=== PATIENT | female | born 1955 | race Caucasian/White ===

== ENCOUNTER 2017-02-13 17:24 | Inpatient (IN) ==
--- NOTE | 2017-02-13 18:07 | Emergency Department Note ---
Disposition Clinical Impression: Syncope Qualifiers: Syncope type: unspecified Qualified Code(s): R55 - Syncope and collapse Disposition: Still a Patient Condition: Good Instructions: Syncope (ED) Referrals: Shara Richard CNP [Primary Care Provider] - Forms: ED Satisfaction Letter Time of Disposition: 18:54 General Adult HPI - General Chief complaint: ED Syncope Stated complaint: syncopal episode, headache Time Seen by Provider: 02/13/17 17:58 Source: patient Limitations: no limitations Nursing Notes Reviewed: Yes Vital Signs Reviewed: Yes - History of Present Illness HPI Narrative: Patient had syncopal episode today after having esophageal pain after drinking soda. She has had syncopal episodes after pain before. She states that she fell and struck her head on the hardwood. She is complaining of a headache at this time. She states she also urinated on herself. She is unaware how long she laid on the floor. She has no other complaints. Pain Scale: 7 - Related Data Home Medications Medication Instructions Recorded Confirmed Cholecalciferol (Vitamin D3) 3,000 unit PO DAILY 06/10/15 02/08/16 [Vitamin D3] Cyclobenzaprine [Flexeril] 5 mg PO HS 06/10/15 02/08/16 LORazepam [Ativan] 0.5 mg PO DAILY PRN 06/10/15 02/08/16 Lansoprazole [Prevacid] 30 mg PO QAM 06/10/15 02/08/16 Metoprolol XL (24 HR) Succ [Toprol 25 mg PO DAILY 06/10/15 02/08/16 XL] Rivaroxaban [Xarelto] 20 mg PO DAILY 06/10/15 02/08/16 Sertraline [Zoloft] 100 mg PO DAILY 06/10/15 02/08/16 Triamterene/HCTZ 37.5/25mg 1 tab PO DAILY 06/10/15 02/08/16 [Dyazide] Previous Rx's Medication Instructions Recorded Fluticasone Propionate Nasal 2 spray NS DAILY #1 bottle 12/18/16 [Flonase] GuaiFENesin ER [Mucinex] 600 mg PO BID PRN 3 Days 12/18/16 Azithromycin [Zithromax] 1 applic PO DAILY #6 tablet 12/29/16 Allergies Allergy/AdvReac Type Severity Reaction Status Date / Time tramadol AdvReac Dizziness Verified 06/09/15 19:45 All systems ED: reviewed and negative except as stated. Constitutional: Denies: fever, chills ENT ED: Denies: congestion Cardiovascular: Reports: syncope. Denies: chest pain, palpitations Respiratory: Denies: cough, dyspnea Gastrointestinal: Denies: abdominal pain, nausea, vomiting, diarrhea, hematemesis, melena, hematochezia Genitourinary: Denies: urgency, dysuria, frequency, hematuria Musculoskeletal: Reports: back pain (Lower). Denies: neck pain Neurological: Reports: headache. 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 Absent: scleral icterus - ENT ENT exam: normal exam, normal oropharynx, mucous membranes moist - Neck Neck exam: Present: normal inspection, full ROM, trachea midline. Absent: tenderness (No midline tenderness on palpation. She reports neck pain but points to the base of her skull with this.), meningismus, lymphadenopathy - Chest Chest inspection: Present: normal inspection, symmetric chest wall rise. Absent : tenderness - Respiratory Respiratory exam: Present: normal lung sounds bilaterally. Absent: respiratory distress - Cardiovascular Cardiovascular exam: Present: regular rate, normal rhythm, normal heart sounds - Abdominal Exam Abdominal exam: Present: soft, Non-Tender, normal bowel sounds. Absent: tenderness, distention, guarding, rebound, rigidity, organomegaly - Extremities Exam Extremities exam: Present: normal inspection, full ROM, normal capillary refill. Absent: tenderness, pedal edema - Back Exam Back exam: Present: normal inspection, full ROM. Absent: tenderness, CVA tenderness (R), CVA tenderness (L) - Neurological Exam Neurological exam: Present: alert, oriented X3 - Psychiatric Psychiatric exam: Present: normal affect, normal mood - Skin Skin exam: Present: warm, dry, intact, normal color. Absent: rash, cyanosis, diaphoresis Course Course Narrative: Well-appearing female patient in no distress resting in bed. She states that she has a headache. She states that she had a syncopal episode this afternoon. Sacral episode happened directly after she swallows some soda and had pain in her esophagus. She has had syncopal episodes previously after a painful experience. She has also had a syncopal episode after needlesticks and orthostasis. She complains of a headache at this time. She states she struck her head on the hardwood. She is unaware how long she laid on the floor. She did urinate on herself. She denies pain to her neck or back on palpation. She does report a lower back ache. Her lung sounds are clear heart tones are normal. Her abdomen is soft and nontender. She denies any nausea vomiting or diarrhea. She denies any chest pain or shortness of breath. She ate lunch approximately an hour before her syncopal episode. We will do a cardiac workup and scan patient's head while she is here. Daughter expresses concern of the patient "spacing out" recently. States she has been doing this over the past week. Patient is neurologically intact while she is here. Vital Signs Temperature 98.2 F 02/13/17 17:47 Pulse Rate 65 02/13/17 17:47 Respiratory Rate 18 02/13/17 17:47 Blood Pressure 139/73 02/13/17 17:47 O2 Sat by Pulse Oximetry 100 02/13/17 17:47 Temperature 98.2 F 02/13/17 17:47 Pulse Rate 65 02/13/17 17:47 Respiratory Rate 18 02/13/17 17:47 Blood Pressure 139/73 02/13/17 17:47 O2 Sat by Pulse Oximetry 100 02/13/17 17:47 Oxygen Delivery Oxygen Delivery Room Air Medical Decision Making - Lab Data Result diagrams: 02/13/17 18:23 02/13/17 18:23 Lab Results 02/13/17 02/13/17 02/13/17 Range/Units 18:23 18:23 18:23 WBC 5.9 (4.3-11.1) K/mcL RBC 3.61 L (3.82-4.97) M/mcL Hgb 7.9 L (11.5-15.4) g/dL Hct 27.1 L (35.3-44.9) % MCV 75.1 L (83.0-100.0) fL MCH 21.9 L (28.0-33.3) pg MCHC 29.2 L (31.6-35.5) g/dL RDW 16.9 H (11.5-14.5) % Plt Count 292 (140-400) K/mcL MPV 10.5 (9.4-12.4) fL Immature Gran % 0.5 (0-4) % Seg Neutrophils % 67.0 % Lymphocytes % 21.2 % Monocytes % 8.1 % Eosinophils % 2.5 % Basophils % 0.7 % Neutrophils # 4.0 (1.6-8.9) K/mcL Lymphocytes # 1.3 (0.6-4.6) K/mcL Monocytes # 0.5 (0.0-1.3) K/mcL Eosinophils # 0.2 (0.0-0.6) K/mcL Basophils # 0.0 (0.0-0.2) K/mcL Sodium 138 (136-145) mEq/L Potassium 3.8 (3.5-4.5) mEq/L Chloride 104 (98-109) mEq/L Carbon Dioxide 23 (19-29) mEq/L BUN 25 H (7-20) mg/dL Creatinine 1.08 (0.57-1.11) mg/dL Est GFR ( Amer) > 60 (> 60) Est GFR (Non-Af Amer) 51 L (> 60) BUN/Creatinine Ratio 23 (6-26) Glucose 110 H (70-99) mg/dL Calculated Osmolality 291 (280-300) Calcium 9.6 (8.6-10.8) mg/dL Creatine Kinase 322 H (29-168) Units/L Troponin I 0.00 (0-0.03) ng/mL - EKG Data EKG #1 EKG results narrative: EKG normal sinus rhythm at 57. Left anterior fascicular block with left axis deviation. Normal ST segments. EKG unchanged from prior January 2016. S.B.A.R. - S.B.A.R. Background: Presenting Complaint (Syncope after pain in her esophagus from drinking soda.), Relevant PMH, Meds, & Allergies (Has had several episodes of syncope before from pain and needles as well as orthostasis.) Assessment: Vital Signs (Stable), Course and respsone to treatment (CT head lab workup) Recommendation: Recommendation based on pending studies, treatments, or consults (Barring normal workup likely discharge patient home.) [email or web address] Report Given to: Abhay Sprague Repor Time: 18:50 Attestation Statement - Attestation Attestation: I examined this patient and my medical decision-making was reviewed with the CHARGE RN/PA/Advanced Practice Nurse/Resident Physician. I agree with the documented findings, disposition and treatment plan as described except to the extent set forth below. Patient to ED after a syncopal episode. Patient lost consciousness after she was drinking pop and got a spasm in her esophagus that was painful. Family concerned because they state she has been "spacing out" lately. Patient neurologically intact on exam. Plan. Cardiac workup with head CT. Will be signed out to welder 2nd shift.
[2017-02-13 18:33] LABS: Basophils % 0.7 %; Eosinophils # 0.2 K/mcL (0.0-0.6); Eosinophils % 2.5 %; Hematocrit 27.1 % (35.3-44.9); Immature Granulocytes % 0.5 % (0-4); Lymphocytes # 1.3 K/mcL (0.6-4.6); Lymphocytes % 21.2 %; Mean Corpuscular HGB Conc 29.2 g/dL (31.6-35.5); Mean Corpuscular Hemoglobin 21.9 pg (28.0-33.3); Mean Corpuscular Volume 75.1 fL (83.0-100.0); Mean Platelet Volume 10.5 fL (9.4-12.4); Monocytes # 0.5 K/mcL (0.0-1.3); Monocytes % 8.1 %; Platelet Count 292 K/mcL (140-400); Red Blood Count 3.61 M/mcL (3.82-4.97); Red Cell Distribution Width 16.9 % (11.5-14.5)
[2017-02-13 18:43] LABS: BUN/Creatinine Ratio 23 (6-26); Blood Urea Nitrogen 25 mg/dL (7-20); Calcium 9.6 mg/dL (8.6-10.8); Carbon Dioxide 23 mEq/L (19-29); Chloride 104 mEq/L (98-109); Creatine Kinase 322 Units/L (29-168); Glucose 110 mg/dL (70-99); Osmolality,Calculated 291 (280-300); Potassium 3.8 mEq/L (3.5-4.5); Sodium 138 mEq/L (136-145); eGFR For African Americans > 60 (> 60); eGFR For Non-African Americans 51 (> 60)
[2017-02-13 18:44] LABS: Hemoglobin 7.9 g/dL (11.5-15.4)
[2017-02-13] MEDS ORDERED: 0.9 % Sodium Chloride 1,000 ML IVC ONE (18:51)
[2017-02-13] MEDS ORDERED: Pantoprazole 80 MG in 0.9 % Sodium Chloride 50 ML IVPB ONE (19:44)
--- NOTE | 2017-02-13 19:50 | Emergency Department Note ---
Disposition Clinical Impression: GI bleed Syncope Qualifiers: Syncope type: unspecified Qualified Code(s): R55 - Syncope and collapse Disposition: Admitted As Inpatient Condition: Good Instructions: Syncope (ED) Referrals: Jose Manuel,Shara Restrepo CNP [Primary Care Provider] - Forms: ED Satisfaction Letter Time of Disposition: 19:50 General Adult HPI - General Chief complaint: ED Syncope Stated complaint: syncopal episode, headache Time Seen by Provider: 02/13/17 17:58 Source: patient Limitations: no limitations Nursing Notes Reviewed: Yes Vital Signs Reviewed: Yes - History of Present Illness Pain Scale: 6 - Related Data Home Medications Medication Instructions Recorded Confirmed Cholecalciferol (Vitamin D3) 3,000 unit PO DAILY 06/10/15 02/08/16 [Vitamin D3] LORazepam [Ativan] 0.5 mg PO DAILY PRN 06/10/15 02/08/16 Lansoprazole [Prevacid] 30 mg PO QAM 06/10/15 02/08/16 Metoprolol XL (24 HR) Succ [Toprol 25 mg PO DAILY 06/10/15 02/08/16 XL] Rivaroxaban [Xarelto] 20 mg PO DAILY 06/10/15 02/08/16 Sertraline [Zoloft] 100 mg PO DAILY 06/10/15 02/08/16 Triamterene/HCTZ 37.5/25mg 1 tab PO DAILY 06/10/15 02/08/16 [Dyazide] Albuterol Sulfate [Albuterol 2 puff IH Q4-6H PRN 02/13/17 02/13/17 Inhaler] Atorvastatin Calcium [Lipitor] 20 mg PO HS 02/13/17 02/13/17 Allergies Allergy/AdvReac Type Severity Reaction Status Date / Time tramadol AdvReac Dizziness Verified 06/09/15 19:45 Constitutional: Denies: fever, chills ENT ED: Denies: congestion Cardiovascular: Reports: syncope. Denies: chest pain, palpitations Respiratory: Denies: cough, dyspnea Gastrointestinal: Denies: abdominal pain, nausea, vomiting, diarrhea, hematemesis, melena, hematochezia Genitourinary: Denies: urgency, dysuria, frequency, hematuria Musculoskeletal: Reports: back pain (Lower). Denies: neck pain Neurological: Reports: headache. 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 Sebastian. In brief the patient is a pleasant 61-year-old female that is on xarelto for a history of atrial fibrillation. She had an episode of syncope today that sounded more vasovagal and that she was drinking a soda, felt a bubble in her throat and passed out. She has had similar episodes in the past. Given that she is anticoagulated and fell and struck her head she had a CT of her head which was negative. Chest x- ray was also negative. Blood work showed a new anemia at 7.9 and chemistry showing elevated BUNs concerning for possible upper GI bleed. Heme positive stool. Patient was given IV Protonix bolus and 1 unit of packed red blood cells as ordered. She is hemodynamically stable for the floor at this time. Patient accepted by hospitalist Dr. Bradley. Time: 19:50 Vital Signs Temperature 98.2 F 02/13/17 17:47 Pulse Rate 65 02/13/17 17:47 Respiratory Rate 18 02/13/17 17:47 Blood Pressure 139/73 02/13/17 17:47 O2 Sat by Pulse Oximetry 100 02/13/17 17:47 Temperature 98.2 F 02/13/17 17:47 Pulse Rate 60 02/13/17 19:10 Respiratory Rate 18 02/13/17 19:10 Blood Pressure 123/48 02/13/17 19:10 O2 Sat by Pulse Oximetry 98 02/13/17 19:10 Oxygen Delivery Oxygen Delivery Room Air Medical Decision Making - Lab Data Result diagrams: 02/13/17 18:23 02/13/17 18:23 Lab Results 02/13/17 02/13/17 02/13/17 Range/Units 18:23 18:23 18:23 WBC 5.9 (4.3-11.1) K/mcL RBC 3.61 L (3.82-4.97) M/mcL Hgb 7.9 L (11.5-15.4) g/dL Hct 27.1 L (35.3-44.9) % MCV 75.1 L (83.0-100.0) fL MCH 21.9 L (28.0-33.3) pg MCHC 29.2 L (31.6-35.5) g/dL RDW 16.9 H (11.5-14.5) % Plt Count 292 (140-400) K/mcL MPV 10.5 (9.4-12.4) fL Immature Gran % 0.5 (0-4) % Seg Neutrophils % 67.0 % Lymphocytes % 21.2 % Monocytes % 8.1 % Eosinophils % 2.5 % Basophils % 0.7 % Neutrophils # 4.0 (1.6-8.9) K/mcL Lymphocytes # 1.3 (0.6-4.6) K/mcL Monocytes # 0.5 (0.0-1.3) K/mcL Eosinophils # 0.2 (0.0-0.6) K/mcL Basophils # 0.0 (0.0-0.2) K/mcL Sodium 138 (136-145) mEq/L Potassium 3.8 (3.5-4.5) mEq/L Chloride 104 (98-109) mEq/L Carbon Dioxide 23 (19-29) mEq/L BUN 25 H (7-20) mg/dL Creatinine 1.08 (0.57-1.11) mg/dL Est GFR ( Amer) > 60 (> 60) Est GFR (Non-Af Amer) 51 L (> 60) BUN/Creatinine Ratio 23 (6-26) Glucose 110 H (70-99) mg/dL Calculated Osmolality 291 (280-300) Calcium 9.6 (8.6-10.8) mg/dL Creatine Kinase 322 H (29-168) Units/L Troponin I 0.00 (0-0.03) ng/mL Stool Occult Blood (Negative) 02/13/17 Range/Units 19:25 WBC (4.3-11.1) K/mcL RBC (3.82-4.97) M/mcL Hgb (11.5-15.4) g/dL Hct (35.3-44.9) % MCV (83.0-100.0) fL MCH (28.0-33.3) pg MCHC (31.6-35.5) g/dL RDW (11.5-14.5) % Plt Count (140-400) K/mcL MPV (9.4-12.4) fL Immature Gran % (0-4) % Seg Neutrophils % % Lymphocytes % % Monocytes % % Eosinophils % % Basophils % % Neutrophils # (1.6-8.9) K/mcL Lymphocytes # (0.6-4.6) K/mcL Monocytes # (0.0-1.3) K/mcL Eosinophils # (0.0-0.6) K/mcL Basophils # (0.0-0.2) K/mcL Sodium (136-145) mEq/L Potassium (3.5-4.5) mEq/L Chloride (98-109) mEq/L Carbon Dioxide (19-29) mEq/L BUN (7-20) mg/dL Creatinine (0.57-1.11) mg/dL Est GFR ( Amer) (> 60) Est GFR (Non-Af Amer) (> 60) BUN/Creatinine Ratio (6-26) Glucose (70-99) mg/dL Calculated Osmolality (280-300) Calcium (8.6-10.8) mg/dL Creatine Kinase (29-168) Units/L Troponin I (0-0.03) ng/mL Stool Occult Blood Positive A (Negative)
--- NOTE | 2017-02-13 21:40 | Internal Med History&Physical ---
Date of Encounter: 02/13/17 Time of Encounter: 21:40 Assessment and Plan (1) Acute blood loss anemia Current visit: Yes Status: Acute Likely secondary to GI bleed. Monitor H&H. Transfuse PRBC to keep Hemoglobin > 8 (2) GI bleed Current visit: Yes Status: Acute FOB positive. No overt melena or hematochezia. Suspect subacute bleed. GI consult for possible endoscopy. Emperically treat with pantoprazole IV. Hold xarelto Qualifiers: GI bleed type/associated pathology: unspecified gastrointestinal hemorrhage type Qualified Code(s): K92.2 - Gastrointestinal hemorrhage, unspecified (3) Syncope Current visit: Yes Status: Acute Possible reflex syncope versus orthostatic versus cardiogenic. Pt had urinary incontinence - will obtain EEG to exclude seizure activity. Will check orthostatic vitals, echocardiogram, urinalysis. She also has left anterior fascicular block on the EKG - consider cardiology consult, if other w/u is negative. Qualifiers: Syncope type: unspecified Qualified Code(s): R55 - Syncope and collapse (4) Chronic anticoagulation Current visit: Yes Status: Chronic patient is on Xarelto for anticoagulation for A fib. Hold anticoagulation at this time. (5) History of atrial fibrillation Current visit: Yes Status: Acute Pt is in sinus rhythm now. Monitor (6) ANDREE (obstructive sleep apnea) Current visit: Yes Status: Chronic Pt was not able to use the CPAP recently, due to cough. She reports feeling tired in the mornind and falls asleep during the day. May need titration of CPAP as out patient. She does not want CPAP tonight (7) DVT prophylaxis Current visit: Yes Status: Acute Pt on Xarelto. Can start SCDs, if the pt is staying beyond tomorrow. Internal Medicine - H&P: HPI Chief complaint: syncope Admitted From: Emergency Dept Plans for Post Hospital Care: Home History of present illness: Ms. Hernandez is a 61 year old female with history of atrial fibrillation - on xarelto and metoprolol, hypertension, ANDREE on CPAP at home, h/o syncopal episodes, s/p cholecystectomy. She had colonoscopy doen about 7-10 years ago and was normal at that time. Her brother had colon cancer at the age of 74. She reports history of multiple episodes of passing out they are usually associated with pain, needles. She reports feeling dizzy on standing up, but usually holds on to something and doesn t pass out. Today, she drank soda and felt like bubble stuck in her midchest, which caused her pain moderate in intensity, sharp, non-radiating and went away. She stood up afterwards and apparently passed out. She found herself on the floor, and wondered how she ended up there. She denies palpitations, shortness of breath, headache, dizziness preceding the syncope. Her grandson was nearby but apparently did not notice her fall. No other withness. No tongue bite; she had urinaly incontinence, but no bowel incontinence. She denies chest pain, shortness of breath, cough, expectation, fever, chills, abdominal pain, nausea, vomiting, dysuria, hematuria, melena, hematochezia, vaginal bleeding. She was evaluated in the emergency department. CT of the head and CXR were negative. Blood work showed anemia with hemoglobin of 7.9 and chemistry showing elevated BUN of 25. Heme positive stool. Patient was given IV Protonix bolus and admitted to the hospitalist service for further workup and management. Past Med Surg Social Fam HX - Past Medical History Medical history: atrial fibrillation, hypertension, syncope, other Psychiatric history: anxiety, depression - Past Surgical History Surgical History: , cholecystectomy, other (Tonsillectomy) - Social History Smoking Status: Never smoker Smokeless Tobacco Status: No Alcohol use: none Drug use: none - Family History Mother Living Status: Father Living Status: Hx Family Cardiac Disorders: Yes Internal Medicine - H&P: Meds Cholecalciferol (Vitamin D3) [Vitamin D3] 2,000 unit PO DAILY 06/10/15 [History] LORazepam [Ativan] 0.5 mg PO DAILY PRN 06/10/15 [History] Lansoprazole [Prevacid] 30 mg PO QAM 06/10/15 [History] Metoprolol XL (24 HR) Succ [Toprol XL] 25 mg PO DAILY 06/10/15 [History] Rivaroxaban [Xarelto] 20 mg PO HS 06/10/15 [History] Sertraline [Zoloft] 100 mg PO HS 06/10/15 [History] Triamterene/HCTZ 37.5/25mg [Dyazide] 1 tab PO DAILY 06/10/15 [History] Albuterol Sulfate [Albuterol Inhaler] 2 puff IH Q4-6H PRN 02/13/17 [History] Atorvastatin Calcium [Lipitor] 20 mg PO HS 02/13/17 [History] Allergies tramadol Adverse Reaction (Verified 06/09/15 19:45) Dizziness All Systems PM: A 10-system review of systems was performed and is negative for pertinent findings except as documented above in the HPI. - Constitutional Vitals: Temp Pulse Resp BP Pulse Ox 98.2 F 60 18 123/48 98 02/13/17 17:47 02/13/17 19:10 02/13/17 20:22 02/13/17 20:22 02/13/17 19:10 Exam: General: Not in acute distress at the time of my evaluation HEENT: Oral mucosa is moist. conjunctival palor present. No scleral icterus Neck: No obvious neck swellings Lungs: Clear to auscultation Cardiac: Regular rate and rhythm. Systolic murmur present Abdomen: Soft, non tender. Bowel sounds present Genitourinary: No lee catheter Neurological: Alert and oriented. No gross localizing deficits Psych: Not aggressive or agitated Extremities: B/L pitting leg edema present Skin: No generalized rash Internal Med - H&P Results - Labs CBC & Chem 7: 02/13/17 23:45 02/13/17 18:23 - EKG Data -: EKG Interpreted by Myself EKG shows normal: sinus rhythm - EKG Data EKG comments: left anterior fascicular block 02/13/17 23:53 - Impressions ITS Impressions Head CT 02/13/17 18:15 IMPRESSION: 1. No acute intracranial abnormality. 2. Right sphenoid sinusitis. D/ / Harjinder Calderon MD / Harjinder Calderon MD Interpreting Provider: Harjinder Calderon MD Chest X-Ray 02/13/17 19:08 IMPRESSION: No evidence of acute cardiopulmonary disease. D/ / García Keane MD / García Keane MD Interpreting Provider: García Keane MD
[2017-02-13] MEDS ORDERED: Naloxone 0.4 MG/ML INJ IVP PRN (21:41)
[2017-02-13] MEDS ORDERED: *HR* LORazepam 0.5 MG TABLET PO PRN (22:42)
[2017-02-13] MEDS ORDERED: Acetaminophen 325 MG TABLET PO ONE (23:00)
[2017-02-13] MEDS: Pantoprazole 40 MG VIAL IVP SCH (23:07)
[2017-02-13 23:55] LABS: Hematocrit 24.6 % (35.3-44.9); Hemoglobin 7.3 g/dL (11.5-15.4)
[2017-02-14 00:02] LABS: INR 1.4; Prothrombin Time 14.7 Seconds (9.4-12.1)
[2017-02-14 00:05] LABS: Activated Partial Thrombo Time 31.3 Seconds (26.0-36.0)
[2017-02-14 02:43] LABS: Bilirubin,Urine Negative (Negative); Blood,Urine Negative (Negative); Clarity,Urine Clear (Clear); Color,Urine Yellow (Yellow); Glucose,Urine (UA) Normal (Normal); Ketones,Urine Negative (Negative); Leukocyte Esterase,Urine Negative (Negative); Nitrite,Urine Negative (Negative); Protein,Urine Negative (Neg-Trace); Urobilinogen,Urine Normal (Normal)
[2017-02-14] MEDS: Pantoprazole 40 MG VIAL IVP SCH ×2 (06:47→17:15)
[2017-02-14 08:24] LABS: Hematocrit 27.6 % (35.3-44.9); Hemoglobin 8.2 g/dL (11.5-15.4); Mean Corpuscular HGB Conc 29.7 g/dL (31.6-35.5); Mean Corpuscular Hemoglobin 22.5 pg (28.0-33.3); Mean Corpuscular Volume 75.6 fL (83.0-100.0); Mean Platelet Volume 10.4 fL (9.4-12.4); Platelet Count 268 K/mcL (140-400); Red Blood Count 3.65 M/mcL (3.82-4.97); Red Cell Distribution Width 17.1 % (11.5-14.5)
[2017-02-14] MEDS ORDERED: Perflutren Lipid Microsphere 1.3 ML in 0.9 % Sodium Chloride 8.7 ML IVP ONE (08:58)
[2017-02-14] MEDS ORDERED: Perflutren Lipid Microsphere 2 ML VIAL ONE (09:02)
[2017-02-14 09:11] LABS: Alanine Aminotransferase 21 Units/L (0-55); Albumin 3.3 g/dL (3.5-5.0); Alkaline Phosphatase 41 Units/L (38-126); Aspartate Amino Transferase 23 Units/L (5-34); BUN/Creatinine Ratio 17 (6-26); Bilirubin,Total 0.7 mg/dL (0.2-1.2); Blood Urea Nitrogen 17 mg/dL (7-20); Calcium 9.6 mg/dL (8.6-10.8); Carbon Dioxide 23 mEq/L (19-29); Chloride 107 mEq/L (98-109); Globulin 3.2 g/dL (2.4-3.5); Glucose 103 mg/dL (70-99); Osmolality,Calculated 290 (280-300); Potassium 3.8 mEq/L (3.5-4.5); Sodium 139 mEq/L (136-145); Total Protein 6.5 g/dL (6.0-8.3); eGFR For African Americans > 60 (> 60); eGFR For Non-African Americans 55 (> 60)
--- NOTE | 2017-02-14 10:02 | ECHO - Doppler Report ---
Echo with Imaging Enhancement Agent Name: Laurie Hernandez Date of Study: 02/14/2017 Date: 1955 Ht: 65.0 in Medical Record#: [id number] Age: 61 Wt: 238.0 lb Gender: Female BSA: 2.13 Order #: [id number] Location: [facility] Room #: 3B Reading Physician: Malaika Harrison DO Outside Installation Machinist: Kenya Bennett Ordering Physician: Angie Comer MD Primary Physician: Shara Richard CNP Indications: Syncope Impressions: LVEF 55%. Normal left ventricular size and systolic function. There is evidence of moderate diastolic dysfunction of the left ventricle. Normal right ventricular size and function. Mild aortic regurgitation. No pulmonary hypertension. Left Ventricular Wall Motion: Rest Echo Findings All wall segments showed normal motion. Findings: Study Quality * Technically sub-optimal due to body habitus. ECG Findings * Sinus rhythm with BBB. Aorta * Normally sized aortic root. Left Atrium * Moderate to severely enlarged. Aortic Valve * Mild aortic regurgitation. * Aortic valve not well visualized. * No aortic stenosis. Tricuspid Valve * Trace tricuspid regurgitation. * Normal tricuspid valve structure. * Estimated RA pressure is 3 mmHg. * Estimated RVSP is 20 mmHg. * No pulmonary hypertension. Pulmonic Valve * Pulmonic valve is not well visualized. * No pulmonic stenosis. * No pulmonic regurgitation. Pulmonary Artery * Pulmonary artery not well visualized. Left Ventricle * LVEF 55%. * Normal LV chamber size, wall thickness and function. * Moderate left ventricular diastolic dysfunction. * Definity echo contrast was used. Right Ventricle * Normal right ventricular structure and function. Right Atrium * Normal right atrial size. Mitral Valve * No mitral stenosis. * Trace mitral regurgitation. * Normal mitral structure. Pericardium * There is no pericardial effusion present. Interatrial Septum * Interatrial septum not well evaluated. IVC * The IVC is not dilated. History Hypertension Hypercholesteremia Family History of CAD 01/19/2014 a Previous Echo was performed. Contrast: Definity 1.3 ml in 8.7 ml of saline 2 ml. Measurements: BP: 123/ 71 2D Normal Values RVIDd: 3.40 cm <2.7 cm IVSd: 1.20 cm 0.6 - 1.0 cm LVIDd: 5.00 cm 3.7 - 5.6 cm LVPWd: 1.20 cm 0.6 - 1.1 cm LVIDs: 3.50 cm 1.5 - 3.6 cm AO: 2.50 cm < 4.0 cm LA: 4.80 cm 2.0 - 4.0cm %FS: 30.00 cm >25 % LVOT Diam: 2.00 cm LA volume: 89 Mitral Valve Peak E:.98 m/sec Peak A:.90 m/sec E/A Ratio:1.1 Peak E' Lat Dane:9.07 cm/s Peak E' Med Dane:5.35 cm/s E/E' Lat Ratio:10.8 E/E' Med Ratio:18.4 LVOT Peak Dane:1.36 m/sec Mean Dane:.93 m/sec Peak Grad:7.00 mmHg Mean Grad:4.00 mmHg Aortic Valve Peak Dane:2.54 m/sec Mean Dane:1.69 m/sec Peak Grad:26.00 mmHg Mean Grad:13.00 mmHg Valve Area:1.84 cm2 Pressure 1/2 time:826.00 msec AI pressure Half-time: 826.00 msec Tricuspid Valve TV Regurg Peak Grad: 17.00mmHg TV Regurg Peak Dane: 2.09m/sec Updated by Malaika Harrison on 02/14/2017 9:56:52 AM electronically signed on 02/14/2017 9:57:57 AM with status of Final Wall Motion [place]: 1=Normal, 2=Hypokinesis, 3=Akinesis, 4=Dyskinesis, 5=Aneurysmal, 6=Hyperkinetic, X=Not Visualized (Blank)=Missing
--- NOTE | 2017-02-14 12:03 | Gastroenterology Consult Note ---
<Homero Stinson - Last Filed: 02/14/17 12:00> Date of Encounter: 02/14/17 Time of Encounter: 10:05 - Assessment and plan (1) Anemia Status: Acute Assessment and plan: Continue to monitor CBC and transfuse PRBC as needed. Check iron and ferritin level from ED sample prior to PRBC transfusion. Will plan for EGD and colonoscopy on Friday with prep on Friday. If still admitted, clear liquid diet Friday, no red or purple. NPO at midnight Friday night. If unable tolerate NuLytely please use MiraLAX prep. If not clear by 6 AM Friday, give 2 tap water enemas. If patient is discharged over the weekend, we will complete this as an outpatient. Qualifiers: Anemia type: unspecified type Qualified Code(s): D64.9 - Anemia, unspecified (2) Fecal occult blood test positive Status: Acute (3) Syncope Status: Acute Assessment and plan: Management per primary team. Qualifiers: Syncope type: unspecified Qualified Code(s): R55 - Syncope and collapse - Time Spent With Patient Total time spent is greater than 50% in coordination of care (as documented) at patient's floor/unit and/or counseling patient: GI History of Present Illness - Data of Consult Patient: new to practice Consult date: 02/14/17 Requesting Physician: Sabrina Timmons - Consult Narrative Reason for consult: anemia History of present illness: Ms. Hernandez is a 61 year old female with PMHx of Afib on Xarelto, HTN, ANDREE, and syncopal episodes. Her brother was diagnosed with colon cancer at age 74. Pt presented to the ED with syncopal episode today after having esophageal pain after drinking soda. She states that she fell and struck her head on the hardwood. CT of the head and CXR were negative. We were consulted to evaluate her anemia. Hgb 7.9 on admission and has received 1 unit PRBC. Hgb today 8.2 Procedures: None NSAIDs: None Anticoagulation: None Past Med Surg Social Fam HX - Past Medical History Medical history: atrial fibrillation, hypertension, syncope, other Psychiatric history: anxiety, depression - Past Surgical History Surgical History: , cholecystectomy, other (Tonsillectomy) - Social History Smoking Status: Never smoker Smokeless Tobacco Status: No Alcohol use: none Drug use: none - Family History Mother Living Status: Father Adopted: [place]: ANGIE Family Member Ethnicity: Non- Living Status: Age at : 69 Cause of : HEART PROBLEMS Hx Family Cardiac Disorders: Yes Hx Family Respiratory Disorders: No Hx Family Cancer: No Hx Family GI Disorders: No Hx Family Genitourinary Disorders: No Hx Family Endocrine Disorder: No Hx Family Musculoskeletal Disorders: No Hx Family Neuromuscular Disorders: No Hx Family Neurologic Disorders: No Hx Family HEENT Disorders: No Hx Family Autoimmune Disorders: No Hx Family Reproductive Disorders: No Hx Family Psychosocial Disorders: No Hx Family Medical Disorders: No - Gastrointestinal Gastrointestinal: Present: as per HPI - Constitutional Constitutional: as per HPI - EENT Eyes: as per HPI Ears: Present: as per HPI Nose, mouth and throat: Present: as per HPI - Cardiovascular Cardiovascular ROS: Present: as per HPI - Respiratory Respiratory IM: Present: as per HPI - Genitourinary Genitourinary: Absent: change in color, Urinary frequency - Neurological ROS Neurological GI: Present: as per HPI - Hematologic/Lymphatic Hematologic/Lymphatic pediatric: Present: as per HPI - Musculoskeletal Musculoskeletal ROS GI: Present: as per HPI - Integumentary Integumentary GI: Present: as per HPI - Psychiatric ROS Psychiatric GI: Present: as per HPI - Endocrine Endocrine IM: Present: as per HPI - Constitutional Vitals: Temp Pulse Resp BP Pulse Ox 97.4 F L 60 16 116/71 98 02/14/17 11:45 02/14/17 11:45 02/14/17 11:45 02/14/17 11:45 02/14/17 11:45 General appearance: Present: cooperative, A&O X 3, no acute distress, answers questions appropriately - Head Head exam: Present: atraumatic, normocephalic - Eye Eye exam: Present: normal appearance, sclera anicteric - ENT ENT exam: Present: mucous membranes moist - Neck Neck exam general surgery: Present: normal inspection, trachea midline - Respiratory Respiratory exam: Present: CTAB. Absent: rales, rhonchi, wheezes - Cardiovascular Cardiovascular exam: Present: RRR, +S1, +S2 - GI/Abdominal GI/Abdominal exam: Present: soft, no peritoneal signs. Absent: distended, firm , guarding, tenderness - Rectal Rectal exam: Present: deferred - Extremities Exam Extremities exam: Present: warm - Neurological Exam Neurological exam: Present: no focal deficits - Psychiatric Psychiatric exam: Present: normal affect, normal mood - Skin Skin exam: Present: dry, intact, normal color, warm Results - Labs CBC & Chem 7: 02/14/17 08:04 02/14/17 08:04 Labs: Last Result Calcium 9.6 mg/dL (8.6-10.8) 02/14/17 08:04 Troponin I 0.00 ng/mL (0-0.03) 02/14/17 08:04 Stool Occult Blood Positive (Negative) A 02/13/17 19:25 Entire Visit Hgb 8.2 g/dL (11.5-15.4) L 02/14/17 08:04 Hct 27.6 % (35.3-44.9) L 02/14/17 08:04 PT 14.7 Seconds (9.4-12.1) H 02/13/17 23:45 Total Bilirubin 0.7 mg/dL (0.2-1.2) 02/14/17 08:04 AST 23 Units/L (5-34) 02/14/17 08:04 ALT 21 Units/L (0-55) 02/14/17 08:04 - ABG ABG results: PT/INR, D-dimer PT 14.7 Seconds (9.4-12.1) H 02/13/17 23:45 Consult Discharge Plan - Plan Instructions: Iron Supplements (By mouth), Hydrochlorothiazide (By mouth), Pantoprazole (By mouth), Colorectal Cancer (GEN), Heart Healthy Diet (DC), Keyes Esophagus (GEN), DASH Eating Plan (GEN), Low Sodium Diet (DC) Additional Instructions: please follow an strict low salt and low cholesterol diet. Referrals: Silverio Suggs MD [Partnered Physician] - (The office will call you with an appointment date and time. If you do not hear from the office within 3 days please call the office.) Sheryl Infante MD [Partnered Physician] - 02/26/17 1:00 pm (within 1 week) Shara Richard CNP [Primary Care Provider] - 02/20/17 9:00 am (Your appt on 02/18 has been cancelled.) Cheri Olivas MD [Partnered Physician] - (We have requested a hospital follow with Dr Olivas's office. The office will call you at home with an appointment date and time. ) Prescriptions: Ferrous Sulfate 325 mg PO DAILY@0800 #30 tablet Hydrochlorothiazide [Microzide] 25 mg PO DAILY #60 capsule Pantoprazole Sodium 40 mg PO BID #60 tablet. <Cheri Olivas - Last Filed: 02/19/17 09:50> Date of Encounter: 02/14/17 - Time Spent With Patient Total time spent is greater than 50% in coordination of care (as documented) at patient's floor/unit and/or counseling patient: GI History of Present Illness - Data of Consult Requesting Physician: Sabrina Timmons - Consult Narrative History of present illness: Ms. Hernandez is a 61 year old female - Constitutional Vitals: Temp Pulse Resp BP Pulse Ox 97.8 F 62 16 147/71 98 02/17/17 15:52 02/17/17 15:52 02/17/17 15:52 02/17/17 15:52 02/17/17 15:52 Results - Labs CBC & Chem 7: 02/17/17 05:58 02/17/17 05:58 Labs: Last Result Calcium 9.7 mg/dL (8.6-10.8) 02/17/17 05:58 Iron 18 mcg/dL (50-170) L 02/14/17 08:04 % Saturation 4 % (15-50) L 02/14/17 08:04 Transferrin 310 mg/dL (180-382) 02/14/17 08:04 Ferritin 9 ng/ml (5-204) 02/14/17 08:04 Troponin I 0.00 ng/mL (0-0.03) 02/14/17 08:04 Stool Occult Blood Positive (Negative) A 02/13/17 19:25 Entire Visit Hgb 10.0 g/dL (11.5-15.4) L D 02/17/17 05:58 Hct 33.2 % (35.3-44.9) L 02/17/17 05:58 PT 14.7 Seconds (9.4-12.1) H 02/13/17 23:45 Ferritin 9 ng/ml (5-204) 02/14/17 08:04 Total Bilirubin 0.7 mg/dL (0.2-1.2) 02/14/17 08:04 AST 23 Units/L (5-34) 02/14/17 08:04 ALT 21 Units/L (0-55) 02/14/17 08:04 - ABG ABG results: PT/INR, D-dimer PT 14.7 Seconds (9.4-12.1) H 02/13/17 23:45 - Attending Attestation I examined this patient and my medical decision-making was reviewed with the PHOTOENGRAVING MACHINE OPERATOR/TENDER/PA/Advanced Practice Nurse/Resident Physician. I agree with the documented findings, disposition and treatment plan as described except to the extent set forth below.
[2017-02-14 12:40] LABS: % Iron Saturation 4 % (15-50); Iron 18 mcg/dL (50-170); Transferrin 310 mg/dL (180-382)
[2017-02-14 13:02] LABS: Ferritin 9 ng/ml (5-204)
--- NOTE | 2017-02-14 15:26 | EEG/EMG/Oth Biometrics Report ---
EEG Procedure Report Date of procedure: 02/14/17 EEG Procedure: Routine EEG Procedure Note: This is a report of a 21 channel bipolar and referential montage EEG. A posterior dominant rhythm of 10 Hz moderate voltage alpha frequencies identified symmetrically in the posterior head regions. This rhythm attenuates symmetrically with eye opening. Intermixed beta frequencies are identified in the frontal leads bilaterally. Drowsiness and stage II sleep were identified as reference by dropout of the posterior dominant rhythm and the emergence of vertex activity K complexes and sleep spindles. Hyperventilation is not performed on the recording. Photic stimulation is performed and does not produce a driving response. The EKG rhythm strip reveals sinus bradycardia at 48 beats per minute. Impressions: This EEG recording is within normal limits. There is no evidence of epileptiform activity identified during the study. Comment: Sinus bradycardia at 48 bpm's identified. A normal EEG does not preclude a diagnosis of seizure or epilepsy. If the clinical suspicion for seizure activity is high, serial EEGs or perhaps a prolonged recording may increase the yield. Please correlate clinically. The documentation in the history of HPI and plan were at least partially created by [employer] recognition technology by Dr. Guerrero. Errors in grammar, wording or other phrases may exist. If errors are found after the documentation signed, they will be addressed individually in the addendum section of this document when appropriate.
[2017-02-14] MEDS: Acetaminophen 325 MG TABLET PO PRN (17:15)
--- NOTE | 2017-02-14 17:39 | Electrocardiograph Report ---
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
--- NOTE | 2017-02-14 19:08 | Internal Med Progress Note ---
Date of Encounter: 02/14/17 Time of Encounter: 12:30 - Assessment and plan (1) Syncope Current Visit: Yes Status: Acute Assessment and plan: secondary to blood loss anemia. plan as in anemia echocardiogram shows LVEF 55%, moderate diastolic dysfunction. eeg was unremarkable. head ct was negative for any acute process Qualifiers: Syncope type: unspecified Qualified Code(s): R55 - Syncope and collapse (2) Anemia Current Visit: Yes Status: Acute Assessment and plan: hgb at 7.3 transfused 1 unit PRBC. holding xarelto. no external bleeding. fecal occult blood test was positive. close monitoring. GI consulted. ferritin at 9. start ferrous sulfate. Qualifiers: Anemia type: iron deficiency Iron deficiency anemia type: chronic blood loss Qualified Code(s): D50.0 - Iron deficiency anemia secondary to blood loss (chronic) (3) Fecal occult blood test positive Current Visit: Yes Status: Acute Assessment and plan: likely from gi bleed. (4) GI bleed Current Visit: Yes Status: Acute Assessment and plan: plan as above Qualifiers: GI bleed type/associated pathology: unspecified gastrointestinal hemorrhage type Qualified Code(s): K92.2 - Gastrointestinal hemorrhage, unspecified (5) History of atrial fibrillation Current Visit: Yes Status: Acute Assessment and plan: hold Xarelto. continue metoprolo. HR is adequate (6) HTN (hypertension) Current Visit: No Status: Chronic Assessment and plan: low normal BP. hold home meds. Qualifiers: Hypertension type: essential hypertension Qualified Code(s): I10 - Essential (primary) hypertension - Subjective Interval history: patient denies any bleeding. no abdominal pain. she takes xarelto for the past 2 years. no bleeding in the past - Constitutional Vitals: Temp Pulse Resp BP Pulse Ox 97.7 F 65 16 121/76 99 02/14/17 15:21 02/14/17 15:21 02/14/17 15:21 02/14/17 15:21 02/14/17 15:21 - Neck Neck exam general surgery: Present: supple, trachea midline. Absent: lymphadenopathy - Respiratory Respiratory exam: Present: CTAB - Cardiovascular Cardiovascular exam: Present: RRR - GI/Abdominal GI/Abdominal exam: Present: normal bowel sounds, soft. Absent: distended, tenderness - Extremities Exam Extremities exam: Absent: pedal edema - Neurological Exam Neurological exam: Present: alert, oriented X3, no focal deficits, strengths equal and symetr throughout. Absent: facial droop, speech deficit Internal Medicine: Result - Labs CBC & Chem 7: 02/14/17 08:04 02/14/17 08:04 Labs: Short CBC 02/14/17 Range/Units 08:04 WBC 4.2 L (4.3-11.1) K/mcL Hgb 8.2 L (11.5-15.4) g/dL Hct 27.6 L (35.3-44.9) % Plt Count 268 (140-400) K/mcL BMP 02/14/17 08:04 Sodium 139 Potassium 3.8 Chloride 107 Carbon Dioxide 23 BUN 17 Creatinine 1.01 Glucose 103 H Calcium 9.6 Cardiac Enzymes 02/14/17 Range/Units 08:04 Troponin I 0.00 (0-0.03) ng/mL Liver Function 02/14/17 Range/Units 08:04 Total Bilirubin 0.7 (0.2-1.2) mg/dL AST 23 (5-34) Units/L ALT 21 (0-55) Units/L Alkaline Phosphatase 41 (38-126) Units/L Albumin 3.3 L (3.5-5.0) g/dL Urine 02/14/17 Range/Units 02:30 Urine Color Yellow (Yellow) Urine Clarity Clear (Clear) Urine pH 6.0 (5.0-8.0) pH Units Ur Specific [place] 1.010 (1.010-1.025) Urine Protein Negative (Neg-Trace) mg/dL Urine Glucose (UA) Normal (Normal) mg/dL - ABG Interpretation ABG results: PT/INR, D-dimer PT 14.7 Seconds (9.4-12.1) H 02/13/17 23:45 Consult Discharge Plan - Plan Referrals: Jose Manuel,Shara Restrepo CNP [Primary Care Provider] - 02/20/17 9:00 am (Your appt on 02/18 has been cancelled.)
[2017-02-14 19:48] LABS: Hematocrit 28.3 % (35.3-44.9); Hemoglobin 8.1 g/dL (11.5-15.4)
[2017-02-15 03:37] LABS: Basophils # 0.1 K/mcL (0.0-0.2); Basophils % 1.2 %; Eosinophils # 0.2 K/mcL (0.0-0.6); Eosinophils % 3.2 %; Hematocrit 27.7 % (35.3-44.9); Hemoglobin 8.2 g/dL (11.5-15.4); Immature Granulocytes % 0.4 % (0-4); Lymphocytes # 1.7 K/mcL (0.6-4.6); Lymphocytes % 33.7 %; Mean Corpuscular HGB Conc 29.6 g/dL (31.6-35.5); Mean Corpuscular Hemoglobin 22.3 pg (28.0-33.3); Mean Corpuscular Volume 75.3 fL (83.0-100.0); Monocytes # 0.5 K/mcL (0.0-1.3); Monocytes % 9.4 %; Neutrophils # 2.6 K/mcL (1.6-8.9); Platelet Count 262 K/mcL (140-400); Red Blood Count 3.68 M/mcL (3.82-4.97); Segmented Neutrophils % 52.1 %
[2017-02-15 03:54] LABS: Calcium 9.4 mg/dL (8.6-10.8); Magnesium 1.6 mg/dL (1.6-2.6); Potassium 3.5 mEq/L (3.5-4.5)
[2017-02-15] MEDS: Pantoprazole 40 MG VIAL IVP SCH ×2 (05:28→18:44)
[2017-02-15] MEDS ORDERED: Regadenoson 0.4 MG/5 ML SYRINGE IVP ONE (10:06)
--- NOTE | 2017-02-15 13:24 | Internal Med Progress Note ---
Date of Encounter: 02/15/17 Time of Encounter: 13:22 - Assessment and plan (1) Syncope Current Visit: Yes Status: Acute Assessment and plan: secondary to chronic blood loss anemia r/o ACS. echocardiogram shows LVEF 55%, moderate diastolic dysfunction. eeg was unremarkable. head ct was negative for any acute process stress test ordered. no telemetry events. Qualifiers: Syncope type: unspecified Qualified Code(s): R55 - Syncope and collapse (2) Anemia Current Visit: Yes Status: Acute Assessment and plan: symptomatic iron deficiency anemia. ferritin at 9. 02/13: hgb at 7.3 transfused 1 unit PRBC. holding xarelto. 02/15: hgb at 8.1. no external bleeding. GI consulted. plan for colonoscopy on Friday. continue ferrous sulfate. Qualifiers: Anemia type: iron deficiency Iron deficiency anemia type: chronic blood loss Qualified Code(s): D50.0 - Iron deficiency anemia secondary to blood loss (chronic) (3) Fecal occult blood test positive Current Visit: Yes Status: Acute Assessment and plan: likely from gi bleed. (4) GI bleed Current Visit: Yes Status: Acute Assessment and plan: plan as above Qualifiers: GI bleed type/associated pathology: unspecified gastrointestinal hemorrhage type Qualified Code(s): K92.2 - Gastrointestinal hemorrhage, unspecified (5) History of atrial fibrillation Current Visit: Yes Status: Acute Assessment and plan: hold Xarelto. continue metoprolo. HR is adequate (6) HTN (hypertension) Current Visit: No Status: Chronic Assessment and plan: low normal BP. hold home meds. Qualifiers: Hypertension type: essential hypertension Qualified Code(s): I10 - Essential (primary) hypertension - Subjective Interval history: patient has no chest pain. no shortness of breath. no bleeding. - Constitutional Vitals: Temp Pulse Resp BP Pulse Ox 98.0 F 70 16 119/49 96 02/15/17 07:14 02/15/17 07:14 02/15/17 07:14 02/15/17 07:14 02/15/17 07:14 General appearance: Present: cooperative, A&O X 3, pleasant, no acute distress, answers questions appropriately - Respiratory Respiratory exam: Present: CTAB - Cardiovascular Cardiovascular exam: Present: RRR - GI/Abdominal GI/Abdominal exam: Present: normal bowel sounds, soft. Absent: distended, tenderness - Extremities Exam Extremities exam: Absent: pedal edema - Back Exam Back exam: Absent: CVA tenderness (L), CVA tenderness (R) - Neurological Exam Neurological exam: Present: alert, oriented X3, no focal deficits, strengths equal and symetr throughout. Absent: facial droop, speech deficit - Skin Skin exam: Absent: rash Internal Medicine: Result - Labs CBC & Chem 7: 02/15/17 03:19 02/15/17 03:19 Labs: Short CBC 02/14/17 02/15/17 Range/Units 19:17 03:19 WBC 5.0 (4.3-11.1) K/mcL Hgb 8.1 L 8.2 L (11.5-15.4) g/dL Hct 28.3 L 27.7 L (35.3-44.9) % Plt Count 262 (140-400) K/mcL Neutrophils # 2.6 (1.6-8.9) K/mcL BMP 02/15/17 03:19 Sodium 137 Potassium 3.5 Chloride 106 Carbon Dioxide 22 BUN 19 Creatinine 1.14 H Glucose 101 H Calcium 9.4 - ABG Interpretation ABG results: PT/INR, D-dimer PT 14.7 Seconds (9.4-12.1) H 02/13/17 23:45 Consult Discharge Plan - Plan Referrals: Shara Richard CNP [Primary Care Provider] - 02/20/17 9:00 am (Your appt on 02/18 has been cancelled.)
[2017-02-15] MEDS: Acetaminophen 325 MG TABLET PO PRN (14:58)
[2017-02-16 05:22] LABS: Basophils % 0.7 %; Eosinophils # 0.1 K/mcL (0.0-0.6); Eosinophils % 2.2 %; Hematocrit 27.5 % (35.3-44.9); Immature Granulocytes % 0.2 % (0-4); Lymphocytes # 1.6 K/mcL (0.6-4.6); Mean Corpuscular HGB Conc 29.1 g/dL (31.6-35.5); Mean Corpuscular Hemoglobin 22.2 pg (28.0-33.3); Mean Corpuscular Volume 76.2 fL (83.0-100.0); Monocytes # 0.6 K/mcL (0.0-1.3); Monocytes % 11.4 %; Platelet Count 254 K/mcL (140-400); Red Blood Count 3.61 M/mcL (3.82-4.97); Red Cell Distribution Width 17.1 % (11.5-14.5); Segmented Neutrophils % 56.5 %
[2017-02-16 05:34] LABS: Calcium 9.1 mg/dL (8.6-10.8); Neutrophils # 3.1 K/mcL (1.6-8.9); Potassium 3.6 mEq/L (3.5-4.5)
[2017-02-16] MEDS: Pantoprazole 40 MG VIAL IVP SCH ×2 (05:46→16:51)
[2017-02-16 05:50] LABS: Anisocytosis 1+ (Not Present); Hypochromasia Present (Not Present); Platelet Estimate Normal (Normal); Schistocytes 1+ (Not Present)
[2017-02-16 05:51] LABS: Ovalocytes 1+ (Not Present); Poikilocytosis 1+ (Not Present); Polychromasia 1+ (Not Present)
--- NOTE | 2017-02-16 12:02 | Nuclear Medicine Stress Report ---
Regadenoson Nuclear 2 day Name: Laurie Hernandez Date of Study: 02/15/2017 Date: 1955 Ht: 64.0 in Medical Record#: [id number] Age: 61 Wt: 240.0 lb Gender: Female Order #: [id number] Location: [facility] Room: [facility] Supervising Provider: Tomas Bradlye CNP Reading Physician: Silverio Suggs MD, [facility] Ordering Physician: Sabrina Timmons MD Primary Care Physician: Shara Richard CNP Stress Technologist: José Miguel Gunter RRT, CCT Heel Seam Rubber: Narciso Sarmiento Indications: Syncope Impression: Perfusion imaging was positive for ischemia - small, mildly reversible mid anterior defect. Pharmacologic ECG was non diagnostic for ischemia. Patient had no chest pain with stress. No arrhythmias noted with stress. Gated EF = 67%. There is no evidence of TID. No high risk findings on stress test Ordering physician and cardiology consultation team notified. History: Hypertension Hypercholesteremia Stress Test Summary: Stress Test Type: Pharmacologic Regadenoson 0.4mg/5ml given IV Baseline Information: Initial Heart Rate: 49 Blood Pressure: 130/76 Stress Information: Stress Time: 4 min 00 sec Test Terminated Due to (primary): Completed Protocol Maximum Blood Pressure: 104/76 Maximum Heart Rate: 79 Percent Maximum Heart Rate Achieved: 50 Double Product: 8216 METS Reached: 1 Symptoms: Shortness of breath, [place] Nuclear Summary: SPECT myocardial perfusion imaging using Tc99m Sestamibi given intravenously was performed at rest and following cardiac stress testing. The resting images were obtained following initial dose of 35.7 mCi. Following stress an additional dose of 35.2 mCi was given at peak exercise or 30 seconds post regadenoson infusion. Medication Given: Time Medication Dose Units Route Findings: Stress Note * Sinus bradycardia. * No baseline arrhythmias were noted. * Pharmacologic stress ECG is non diagnostic for ischemia due to failure to reach target heartrate. * No chest pain or arrhythmias during stress. Hemodynamic responses * The patient demonstrated a hypotensive blood pressure response. Study Quality * Study quality is average. Gated EF % * Gated EF = 67%. Left Ventricle * The left ventricle is not dilated. NORMALS * Normal wall motion. * Normal Segmental Perfusion in rest. * All other segmental perfusion normal in stress. Anterior Perfusion Stress * The mid anterior segment shows a mild reduction in perfusion. Updated by Silverio Suggs MD, FACC on 02/16/2017 11:53:04 AM electronically signed on 02/16/2017 11:58:46 AM with status of Final
[2017-02-16] MEDS: Furosemide 40 MG TABLET PO SCH ×2 (12:12→16:51)
[2017-02-16] MEDS ORDERED: 0.9 % Sodium Chloride 250 ML ONE (13:31)
[2017-02-16] MEDS ORDERED: SODIUM CHLORIDE/NAHCO3/KCL/PEG 4,000 ML SOLN.RECON PO ONE (17:00)
--- NOTE | 2017-02-16 17:52 | Internal Med Progress Note ---
Date of Encounter: 02/16/17 Time of Encounter: 12:30 - Assessment and plan (1) Syncope Current Visit: Yes Status: Acute Assessment and plan: secondary to chronic blood loss anemia r/o ACS. echocardiogram shows LVEF 55%, moderate diastolic dysfunction. eeg was unremarkable. head ct was negative for any acute process stress test showed small, mildly reversible mid anterior defect. Cardiology consulted. continue statin and metoprolol. no aspirin due to GI bleed. telemetry events. Qualifiers: Syncope type: unspecified Qualified Code(s): R55 - Syncope and collapse (2) Anemia Current Visit: Yes Status: Acute Assessment and plan: symptomatic iron deficiency anemia. ferritin at 9. 5/18: hgb at 7.3 transfused 1 unit PRBC. holding xarelto. 02/16: hgb at 8. no external bleeding. GI consulted. plan for colonoscopy tomorrow. continue ferrous sulfate. transfuse 1 unit PRBC due to abnormal stress test. Qualifiers: Anemia type: iron deficiency Iron deficiency anemia type: chronic blood loss Qualified Code(s): D50.0 - Iron deficiency anemia secondary to blood loss (chronic) (3) Fecal occult blood test positive Current Visit: Yes Status: Acute Assessment and plan: likely from gi bleed. (4) GI bleed Current Visit: Yes Status: Acute Assessment and plan: plan as above Qualifiers: GI bleed type/associated pathology: unspecified gastrointestinal hemorrhage type Qualified Code(s): K92.2 - Gastrointestinal hemorrhage, unspecified (5) Diastolic dysfunction Current Visit: Yes Status: Acute Assessment and plan: echocardiogram shows moderate diastolic dysfunction. start lasix due to LE edema. (6) History of atrial fibrillation Current Visit: Yes Status: Acute Assessment and plan: hold Xarelto. continue metoprolo. HR is adequate (7) HTN (hypertension) Current Visit: No Status: Chronic Assessment and plan: low normal BP. hold home meds. Qualifiers: Hypertension type: essential hypertension Qualified Code(s): I10 - Essential (primary) hypertension - Subjective Interval history: patient denies any bleeding. - Constitutional Vitals: Temp Pulse Resp BP Pulse Ox 98.0 F 47 16 119/67 97 02/16/17 14:58 02/16/17 14:58 02/16/17 14:58 02/16/17 14:58 02/16/17 14:58 General appearance: Present: cooperative, A&O X 3, pleasant, no acute distress, answers questions appropriately - Neck Neck exam general surgery: Present: supple, trachea midline. Absent: lymphadenopathy - Respiratory Respiratory exam: Present: CTAB - Cardiovascular Cardiovascular exam: Present: RRR - GI/Abdominal GI/Abdominal exam: Present: normal bowel sounds, soft. Absent: distended, tenderness - Extremities Exam Extremities exam: Present: pedal edema - Back Exam Back exam: Absent: CVA tenderness (L), CVA tenderness (R) - Neurological Exam Neurological exam: Present: alert, oriented X3, no focal deficits, strengths equal and symetr throughout. Absent: facial droop, speech deficit - Skin Skin exam: Absent: rash Internal Medicine: Result - Labs CBC & Chem 7: 02/16/17 04:17 02/16/17 04:17 Labs: Short CBC 02/16/17 Range/Units 04:17 WBC 5.4 (4.3-11.1) K/mcL Hgb 8.0 L (11.5-15.4) g/dL Hct 27.5 L (35.3-44.9) % Plt Count 254 (140-400) K/mcL Neutrophils # 3.1 (1.6-8.9) K/mcL BMP 02/16/17 04:17 Sodium 137 Potassium 3.6 Chloride 105 Carbon Dioxide 23 BUN 20 Creatinine 1.29 H Glucose 102 H Calcium 9.1 - ABG Interpretation ABG results: PT/INR, D-dimer PT 14.7 Seconds (9.4-12.1) H 02/13/17 23:45 Consult Discharge Plan - Plan Referrals: Shara Richard CNP [Primary Care Provider] - 02/20/17 9:00 am (Your appt on 02/18 has been cancelled.)
[2017-02-17] MEDS: Pantoprazole 40 MG VIAL IVP SCH (05:36)
[2017-02-17 06:28] LABS: Basophils # 0.1 K/mcL (0.0-0.2); Basophils % 1.1 %; Eosinophils # 0.1 K/mcL (0.0-0.6); Eosinophils % 2.3 %; Hematocrit 33.2 % (35.3-44.9); Immature Granulocytes % 0.5 % (0-4); Lymphocytes # 1.5 K/mcL (0.6-4.6); Lymphocytes % 24.6 %; Mean Corpuscular HGB Conc 30.1 g/dL (31.6-35.5); Mean Corpuscular Hemoglobin 23.1 pg (28.0-33.3); Mean Corpuscular Volume 76.9 fL (83.0-100.0); Mean Platelet Volume 10.7 fL (9.4-12.4); Monocytes # 0.7 K/mcL (0.0-1.3); Monocytes % 10.5 %; Neutrophils # 3.8 K/mcL (1.6-8.9); Platelet Count 281 K/mcL (140-400); Red Blood Count 4.32 M/mcL (3.82-4.97); Red Cell Distribution Width 17.6 % (11.5-14.5)
[2017-02-17 06:43] LABS: BUN/Creatinine Ratio 13 (6-26); Blood Urea Nitrogen 13 mg/dL (7-20); Calcium 9.7 mg/dL (8.6-10.8); Carbon Dioxide 26 mEq/L (19-29); Chloride 104 mEq/L (98-109); Glucose 90 mg/dL (70-99); Magnesium 1.5 mg/dL (1.6-2.6); Osmolality,Calculated 290 (280-300); Sodium 140 mEq/L (136-145); eGFR For African Americans > 60 (> 60); eGFR For Non-African Americans 54 (> 60)
[2017-02-17] MEDS: Furosemide 40 MG TABLET PO SCH (07:44)
--- NOTE | 2017-02-17 08:59 | Cardiology Consult Note ---
Date of Encounter: 02/17/17 Time of Encounter: 08:59 Assessment and Plan (1) Syncope Current Visit: Yes Status: Acute - Likely vasovagal syncope 2/2 esophageal irritation - no hx of prior CAD; [facility] 07/05/14 EF 60%, coronaries angio free of disease - Echo 12/15/16- mild aortic regurgitation, EF 55% - Stress (nuclear) 12/15/16- EF 67%, mild decrease perfusion in mid ant segment mildly reversible.-->Likely represents artifact. However, since stress test abnormal, start on Plavix 75mg daily if able to tolerate. - F/u in cardiology clinic in 1 month. - Cardiology will sign off at this time, please reconsult if needed. Qualifiers: Syncope type: unspecified Qualified Code(s): R55 - Syncope and collapse (2) Paroxysmal a-fib Current Visit: Yes Status: Acute Currently rate controlled on Toprol XL25mg Resume xarelto when able depending on results of GI scopes. [id number] score 2= moderate to high risk of stroke/TIA/embolism (3) GI bleed Current Visit: Yes Status: Acute Management per GI Upper/Lower GI scope today. Qualifiers: GI bleed type/associated pathology: unspecified gastrointestinal hemorrhage type Qualified Code(s): K92.2 - Gastrointestinal hemorrhage, unspecified Discussion w patient/family: The assessment and plan as outlined above was discussed with the patient and/or family members who expressed understanding and agreement. All questions were answered. Thank you for involving us in the care of your patient. Please call with any questions. History of Present Illness Consult date: 02/16/17 Requesting physician: Sabrina Timmons Consult reason: abnormal stress test Chief complaint: syncope History of present illness: Ms. Hernandez is a 61 year old female with a past medical history of paroxysmal atrial fibrillation on xarelto, hypertension, obstructive sleep apnea on CPAP, syncope secondary to painful stimuli. Patient initially presented to the emergency department with a syncopal episode following swallowing and air bubble from her soda. States it felt very uncomfortable going down in the midesophagus and then she passed out. Patient denies any chest pain preceding or following this event. Note difficulty breathing. In the emergency department, a cardio pulmonary workup was completed along with a head CT. Patient was found to be anemic with a hemoglobin of 7.9. A rectal exam showed a positive Hemoccult. Patient had not had any gross blood or dark tarry stools. Patient was treated as a GI bleed and given 1 unit of packed red blood cells. She was admitted to the hospitalist service. Pt will undergo upper GI and colonoscopy today. Echocardiogram on 02/14/2017 showed LVEF of 55%, moderate LV diastolic dysfunction, mild aortic regurgitation. Patient also had an EEG which ruled out any signs of active seizures. Nuclear stress test showed an ejection fraction of 67%, mild decreased perfusion in the mid anterior segment that is mildly reversible. Patient's last heart catheterization was in 07/05/2014 which showed EF of 60% with no signs of coronary artery disease. Only other significant previous medical history for recent sinusitis in which she was treated with Augmentin followed by Omnicef followed by [facility] Past Med Surg Social Fam HX - Past Medical History Medical history: atrial fibrillation, hypertension, syncope, other Psychiatric history: anxiety, depression - Past Surgical History Surgical History: , cholecystectomy, other (Tonsillectomy) - Social History Smoking Status: Never smoker Smokeless Tobacco Status: No Alcohol use: none Drug use: none - Family History Mother Living Status: Father Adopted: [place]: ANGIE Family Member Ethnicity: Non- Living Status: Age at : 67 Cause of : HEART PROBLEMS Hx Family Cardiac Disorders: Yes Hx Family Respiratory Disorders: No Hx Family Cancer: No Hx Family GI Disorders: No Hx Family Genitourinary Disorders: No Hx Family Endocrine Disorder: No Hx Family Musculoskeletal Disorders: No Hx Family Neuromuscular Disorders: No Hx Family Neurologic Disorders: No Hx Family HEENT Disorders: No Hx Family Autoimmune Disorders: No Hx Family Reproductive Disorders: No Hx Family Psychosocial Disorders: No Hx Family Medical Disorders: No Medications and Allergies Cholecalciferol (Vitamin D3) [Vitamin D3] 2,000 unit PO DAILY 06/10/15 [History] LORazepam [Ativan] 0.5 mg PO DAILY PRN 06/10/15 [History] Lansoprazole [Prevacid] 30 mg PO QAM 06/10/15 [History] Metoprolol XL (24 HR) Succ [Toprol XL] 25 mg PO DAILY 06/10/15 [History] Rivaroxaban [Xarelto] 20 mg PO HS 06/10/15 [History] Sertraline [Zoloft] 100 mg PO HS 06/10/15 [History] Triamterene/HCTZ 37.5/25mg [Dyazide] 1 tab PO DAILY 06/10/15 [History] Albuterol Sulfate [Albuterol Inhaler] 2 puff IH Q4-6H PRN 02/13/17 [History] Atorvastatin Calcium [Lipitor] 20 mg PO HS 02/13/17 [History] Allergies tramadol Adverse Reaction (Verified 06/09/15 19:45) Dizziness All Systems Review: A 10-system review of systems was performed and is negative for pertinent findings except as documented above in the HPI. - Constitutional Constitutional: no fever(s), no headache(s), no weakness - EENT Eyes: no blurred vision Nose, mouth and throat: no dysphagia, no mouth pain, no sore throat - Cardiovascular Cardiovascular: dyspnea on exertion (with stairs), lightheadedness (yesterday, now resolved), no chest pain at rest, no chest pain with exertion, no leg edema - Respiratory Respiratory: no cough, no dyspnea, no wheezing - Gastrointestinal Gastrointestinal: no abdominal pain, no nausea - Genitourinary Genitourinary: no dysuria - Musculoskeletal Musculoskeletal: no muscle cramps, no muscle weakness - Integumentary Integumentary: no erythema, no rash - Neurological Neurological: dizziness (now resolved)), syncope (hx multiple syncope episodes 2 /2 painful stim), no abnormal speech Physical Examination Vital Signs, Last 4 Hours Temp Pulse Resp BP Pulse Ox 02/17/17 07:35 98.3 F 66 16 114/61 95 General: Conversant, No Apparent Distress HEENT: Atraumatic, Mucus Membranes Moist Neck: No JVD, Normal carotid pulses Cardiac: Reg Rate and Rhythm, Normal S1 and S2, No Murmur Lungs: Normal Breath Sounds, No Wheeze, Rales, Rhonchi Neuro: Alert and responsive, No focal deficits noted Abdomen: Soft, Non-Tender Skin: No rashes noted on visualized skin Musculoskeletal: No Chest Wall Tenderness Extremities: No Clubbing, No Edema, Normal Pulses Results 02/17/17 05:58 02/17/17 05:58 Lab Results 02/17/17 02/17/17 05:58 05:58 WBC 6.2 Hgb 10.0 L D Hct 33.2 L Plt Count 281 Sodium 140 Potassium 3.0 L Chloride 104 Carbon Dioxide 26 BUN 13 Creatinine 1.04 Glucose 90 Calcium 9.7 Magnesium 1.5 L - Imaging and Cardiology Chest Xray: report reviewed Stress Test: report reviewed Echo: report reviewed - EKG Interpretation EKG results cardiology: personally reviewed (EKG done on 02/13/2017 at 1827 shows sinus bradycardia with a rate of 57 bpm. Left anterior fascicular block, lateral ND. left axis debviation.) Consult Discharge Plan - Plan Referrals: Shara Richard CNP [Primary Care Provider] - 02/20/17 9:00 am (Your appt on 02/18 has been cancelled.)
--- NOTE | 2017-02-17 13:15 | Anesthesia Evaluation PreOp ---
Date of Encounter: 02/17/17 Time of Encounter: 13:13 - Past History Planned Operation: EGD Cardiac History: HTN (maintained on Dyazide), Hyperlipidemia (maintained on Lipitor), Arrhythmia (Paroxysmal AFib - maintained on Xarelto for anti- coagulation, Metoprolol for rate control), Other (Anemia - Sub-acute blood loss. 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 History: Syncope, Other (Anxiety/Depression maitnained on Zoloft, Ativan) Other Medical History: GERD (maintained on Prevacid) Anesthesia History: No Prior Anesthetic Complications, Past Anesthesia (C- section, Linda) Alcohol Use: none Drug use: none Medications and Allergies Cholecalciferol (Vitamin D3) [Vitamin D3] 2,000 unit PO DAILY 06/10/15 [History] LORazepam [Ativan] 0.5 mg PO DAILY PRN 06/10/15 [History] Lansoprazole [Prevacid] 30 mg PO QAM 06/10/15 [History] Metoprolol XL (24 HR) Succ [Toprol XL] 25 mg PO DAILY 06/10/15 [History] Rivaroxaban [Xarelto] 20 mg PO HS 06/10/15 [History] Sertraline [Zoloft] 100 mg PO HS 06/10/15 [History] Triamterene/HCTZ 37.5/25mg [Dyazide] 1 tab PO DAILY 06/10/15 [History] Albuterol Sulfate [Albuterol Inhaler] 2 puff IH Q4-6H PRN 02/13/17 [History] Atorvastatin Calcium [Lipitor] 20 mg PO HS 02/13/17 [History] Allergies tramadol Adverse Reaction (Verified 06/09/15 19:45) Dizziness - Meds/Allergy Pre-op Review Medications Reviewed: Yes Allergies Reviewed: Yes Beta Blockers on Current Med List: Yes (Metoprolol) If Beta Blockers taken, Date/Time (Last Dose taken): 02/17/17 @ 1006 Anesthesia Results - Labs 02/17/17 05:58 02/17/17 05:58 Laboratory Results WBC 6.2 K/mcL (4.3-11.1) 02/17/17 05:58 RBC 4.32 M/mcL (3.82-4.97) 02/17/17 05:58 Hgb 10.0 g/dL (11.5-15.4) L D 02/17/17 05:58 Hct 33.2 % (35.3-44.9) L 02/17/17 05:58 MCV 76.9 fL (83.0-100.0) L 02/17/17 05:58 MCH 23.1 pg (28.0-33.3) L 02/17/17 05:58 MCHC 30.1 g/dL (31.6-35.5) L 02/17/17 05:58 RDW 17.6 % (11.5-14.5) H 02/17/17 05:58 Plt Count 281 K/mcL (140-400) 02/17/17 05:58 MPV 10.7 fL (9.4-12.4) 02/17/17 05:58 Immature Gran % 0.5 % (0-4) 02/17/17 05:58 Seg Neutrophils % 61.0 % 02/17/17 05:58 Lymphocytes % 24.6 % 02/17/17 05:58 Monocytes % 10.5 % 02/17/17 05:58 Eosinophils % 2.3 % 02/17/17 05:58 Basophils % 1.1 % 02/17/17 05:58 Neutrophils # 3.8 K/mcL (1.6-8.9) 02/17/17 05:58 Lymphocytes # 1.5 K/mcL (0.6-4.6) 02/17/17 05:58 Monocytes # 0.7 K/mcL (0.0-1.3) 02/17/17 05:58 Eosinophils # 0.1 K/mcL (0.0-0.6) 02/17/17 05:58 Basophils # 0.1 K/mcL (0.0-0.2) 02/17/17 05:58 Platelet Estimate Normal (Normal) 02/16/17 04:17 Polychromasia 1+ (Not Present) A 02/16/17 04:17 Hypochromasia Present (Not Present) A 02/16/17 04:17 Poikilocytosis 1+ (Not Present) A 02/16/17 04:17 Anisocytosis 1+ (Not Present) A 02/16/17 04:17 Ovalocytes 1+ (Not Present) A 02/16/17 04:17 Schistocytes 1+ (Not Present) A 02/16/17 04:17 PT 14.7 Seconds (9.4-12.1) H 02/13/17 23:45 INR 1.4 02/13/17 23:45 APTT 31.3 Seconds (26.0-36.0) 02/13/17 23:45 Sodium 140 mEq/L (136-145) 02/17/17 05:58 Potassium 3.0 mEq/L (3.5-4.5) L 02/17/17 05:58 Chloride 104 mEq/L (98-109) 02/17/17 05:58 Carbon Dioxide 26 mEq/L (19-29) 02/17/17 05:58 BUN 13 mg/dL (7-20) 02/17/17 05:58 Creatinine 1.04 mg/dL (0.57-1.11) 02/17/17 05:58 Est GFR ( Amer) > 60 (> 60) 02/17/17 05:58 Est GFR (Non-Af Amer) 54 (> 60) L 02/17/17 05:58 BUN/Creatinine Ratio 13 (6-26) 02/17/17 05:58 Glucose 90 mg/dL (70-99) 02/17/17 05:58 Calculated Osmolality 290 (280-300) 02/17/17 05:58 Calcium 9.7 mg/dL (8.6-10.8) 02/17/17 05:58 Magnesium 1.5 mg/dL (1.6-2.6) L 02/17/17 05:58 Iron 18 mcg/dL (50-170) L 02/14/17 08:04 % Saturation 4 % (15-50) L 02/14/17 08:04 Transferrin 310 mg/dL (180-382) 02/14/17 08:04 Ferritin 9 ng/ml (5-204) 02/14/17 08:04 Total Bilirubin 0.7 mg/dL (0.2-1.2) 02/14/17 08:04 AST 23 Units/L (5-34) 02/14/17 08:04 ALT 21 Units/L (0-55) 02/14/17 08:04 Alkaline Phosphatase 41 Units/L (38-126) 02/14/17 08:04 Creatine Kinase 322 Units/L (29-168) H 02/13/17 18:23 Troponin I 0.00 ng/mL (0-0.03) 02/14/17 08:04 Serum Total Protein 6.5 g/dL (6.0-8.3) 02/14/17 08:04 Albumin 3.3 g/dL (3.5-5.0) L 02/14/17 08:04 Globulin 3.2 g/dL (2.4-3.5) 02/14/17 08:04 Albumin/Globulin Ratio 1.0 (1.1-2.2) L 02/14/17 08:04 Urine Color Yellow (Yellow) 02/14/17 02:30 Urine Clarity Clear (Clear) 02/14/17 02:30 Urine pH 6.0 pH Units (5.0-8.0) 02/14/17 02:30 Ur Specific [place] 1.010 (1.010-1.025) 02/14/17 02:30 Urine Protein Negative mg/dL (Neg-Trace) 02/14/17 02:30 Urine Glucose (UA) Normal mg/dL (Normal) 02/14/17 02:30 Urine Ketones Negative mg/dL (Negative) 02/14/17 02:30 Urine Blood Negative (Negative) 02/14/17 02:30 Urine Nitrite Negative (Negative) 02/14/17 02:30 Urine Bilirubin Negative (Negative) 02/14/17 02:30 Urine Urobilinogen Normal mg/dL (Normal) 02/14/17 02:30 Ur Leukocyte Esterase Negative (Negative) 02/14/17 02:30 Ur Culture Indicated? NO (NO) 02/14/17 02:30 Stool Occult Blood Positive (Negative) A 02/13/17 19:25 Blood Type A POSITIVE 02/13/17 19:27 Antibody Screen NEGATIVE 02/13/17 19:27 Crossmatch See Detail 02/13/17 19:[address] 02/13/17 18:15 IMPRESSION: 1. No acute intracranial abnormality. 2. Right sphenoid sinusitis. D/ / Harjinder Calderon MD / Harjinder Calderon MD Interpreting Provider: Harjinder Calderon MD Chest X-Ray 02/13/17 19:08 IMPRESSION: No evidence of acute cardiopulmonary disease. D/ / García Keane MD / García Keane MD Interpreting Provider: García Keane MD - Imaging EKG: image reviewed ([EKG dated 02/13/17] 57bpm, SB, LAFB, probably Lateral FL) Anesthesia Exam Vital Signs Temp Pulse Resp BP Pulse Ox 02/17/17 11:07 98.1 F 56 16 136/66 99 02/17/17 07:35 98.3 F 66 16 114/61 95 02/17/17 03:36 97.8 F 66 14 117/66 98 02/16/17 23:24 97.5 F L 55 12 128/75 100 02/16/17 20:40 99 02/16/17 18:38 98.1 F 70 16 128/71 99 02/16/17 14:58 98.0 F 47 16 119/67 97 02/16/17 13:55 98.1 F 61 16 106/67 100 02/16/17 13:54 98.0 F 61 16 138/69 100 02/16/17 13:40 98.3 F 62 16 122/66 100 Intake and Output 02/16/17 02/17/17 02/17/17 23:59 07:59 15:59 Intake Total 350 / 350 0 / 0 Output Total 0 / 0 Balance 350 / 350 0 / 0 Intake: Oral 0 / 0 Blood Product 350 / 350 Rbcs Leuko Poor As-1 350 / 350 Unit [id number] Output: Urine 0 / 0 Other: Meal NPO Weight 107.2 kg Patient Weight 02/17/17 23:59 Weight 107.2 kg Height: 5'5" Weight: 236# NPO (# of Hours): MNoc - HEENT Pupil (Motor): Pupils equal, EOMI Mallampati: II Teeth: Normal Oral Opening: Greater than 3 - MARKET CONSULTANT LOC: Oriented MARKET CONSULTANT Motor: Normal RUE, Normal LUE, Normal RLE, Normal LLE, Normal Face MARKET CONSULTANT Sensory: Normal: RUE, LUE, RLE, LLE, Face - Cardiac Rhythm: Regular Murmur: None - Pulmonary Breath Sounds: bilateral Clear Respiratory Effort: Symmetrical Anesthesia Assess/Plan ASA Score: 3 (AFib, GIB, HTN, ANDREE, Morbid Obesity/BMI >39) Modified Andrés Scale for Level of Consciousness: Cooperative, oriented, and tranquil Anesthetic Plan: Regional, MAC Recovery Plan: PACU Anes Supervising Prov Stmt: PT seen/evaluated, R&B discussed, questions answered, consent obtained. Breanne Baugh MD
[2017-02-17] MEDS ORDERED: Tetracaine/Benzocaine/Butamben 200MG/SPRAY (100SPY/BOT) MM ONE (13:47)
[2017-02-17] MEDS ORDERED: Simethicone 40 MG/0.6 ML MLS IR ONE (13:47)
--- NOTE | 2017-02-17 14:34 | Anesthesia Evaluation Post Op ---
Date of Encounter: 02/17/17 Time of Encounter: 14:33 - Vital Signs Vital Signs: vss - Lungs Lungs: Clear Ascult./Percussion - Airway Airway: Non-obstructed - Cardiovascular Baseline Rhythm - Mental Status Mental Status: Asleep with brisk response to light stimulation - Pain Pain Scale used: Leonarda (Faces) - Nausea Vomiting Nausea Vomiting: Not Present - Discharge PostOp Status: Transfer Patient to floor
--- NOTE | 2017-02-17 15:48 | Discharge Summary ---
Date of Encounter: 02/17/17 Time of Encounter: 15:45 - Discharge Diagnosis (1) Syncope Priority: Primary Status: Acute Qualifiers: Syncope type: unspecified Qualified Code(s): R55 - Syncope and collapse (2) Anemia Priority: Primary Status: Acute Qualifiers: Anemia type: iron deficiency Iron deficiency anemia type: chronic blood loss Qualified Code(s): D50.0 - Iron deficiency anemia secondary to blood loss (chronic) (3) Afib Priority: Secondary Status: Chronic Qualifiers: Atrial fibrillation type: chronic Qualified Code(s): I48.2 - Chronic atrial fibrillation (4) GI bleed Priority: Primary Status: Acute Qualifiers: GI bleed type/associated pathology: unspecified gastrointestinal hemorrhage type Qualified Code(s): K92.2 - Gastrointestinal hemorrhage, unspecified (5) Chronic anticoagulation Priority: Primary Status: Chronic (6) History of atrial fibrillation Priority: Secondary Status: Chronic (7) Diastolic dysfunction Priority: Primary Status: Acute (8) Colonic mass Priority: Primary Status: Acute (9) Abnormal stress test Priority: Primary Status: Acute (10) HTN (hypertension) Priority: Secondary Status: Chronic Qualifiers: Hypertension type: essential hypertension Qualified Code(s): I10 - Essential (primary) hypertension - Discharge Medications Prescriptions: Ferrous Sulfate 325 mg PO DAILY@0800 #30 tablet Hydrochlorothiazide [Microzide] 25 mg PO DAILY #60 capsule Pantoprazole Sodium 40 mg PO BID #60 tablet.dr Matias Medications: Cholecalciferol (Vitamin D3) [Vitamin D3] 2,000 unit PO DAILY 06/10/15 [History] LORazepam [Ativan] 0.5 mg PO DAILY PRN 06/10/15 [History] Metoprolol XL (24 HR) Succ [Toprol XL] 25 mg PO DAILY 06/10/15 [History] Sertraline [Zoloft] 100 mg PO HS 06/10/15 [History] Albuterol Sulfate [Albuterol Inhaler] 2 puff IH Q4-6H PRN 02/13/17 [History] Atorvastatin Calcium [Lipitor] 20 mg PO HS 02/13/17 [History] Ferrous Sulfate 325 mg PO DAILY@0800 #30 tablet 02/17/17 [Rx] Hydrochlorothiazide [Microzide] 25 mg PO DAILY #60 capsule 02/17/17 [Rx] Pantoprazole Sodium 40 mg PO BID #60 tablet. 02/17/17 [Rx] Allergies/Adverse Reactions: Allergies tramadol Adverse Reaction (Verified 06/09/15 19:45) Dizziness Procedures/tests Complete & Pending: Procedures Performed prior 72 hours Category Date Time Status NM cassy perf SPECT multi [NM] Routine Exams 02/15/17 09:42 Taken SP pharm nuclear stress Routine Y 02/15/17 09:42 Completed Date of admission: 02/14/17 01:33 Primary care physician: Shara Richard CNP Consults: 02/14/17 11:54 Consult to Interpret Exam [CONS] Routine Consulting Provider: Homero Sylvester Consult to Interpret Exam: Interpret EEG 02/16/17 12:08 Consult to Cardiology [CONS] Routine Comment: Consulting Provider: Cardiology Danielle Reason for Consult: abnormal stress test. Call Completed: Yes 02/17/17 11:34 Consult to Store Deli Manager [CONS] Routine Reason for SW Consult: discharge planning - Patient Status Disposition: Home, Self-Care Condition: Good Functional capacity at discharge: independent ambulation Overall status at discharge: patient is progressing back to baseline - Discharge Instructions Instructions: Iron Supplements (By mouth), Hydrochlorothiazide (By mouth), Pantoprazole (By mouth), Colorectal Cancer (GEN), Heart Healthy Diet (DC), Keyes Esophagus (GEN), DASH Eating Plan (GEN), Low Sodium Diet (DC) Follow Up With: Silverio Suggs MD [Partnered Physician] - (The office will call you with an appointment date and time. If you do not hear from the office within 3 days please call the office.) Sheryl Infante MD [Partnered Physician] - 02/26/17 1:00 pm (within 1 week) Shara Richard CNP [Primary Care Provider] - 02/20/17 9:00 am (Your appt on 02/18 has been cancelled.) Cheri Olivas MD [Partnered Physician] - (We have requested a hospital follow with Dr Olivas's office. The office will call you at home with an appointment date and time. ) Additional Instructions: please follow an strict low salt and low cholesterol diet. - Diet and Activity Activity: resume usual activities as tolerated Diet: low fat, low cholesterol, low salt diet Interval History: patient denies any chest pain. no shortness of breath. no chest pain. she wants to eat. Hospital course: Ms. Hernandez is a 61 year old female with past medical history of afib on Xarelto , htn, and ANDREE on CPAP who presented to our ED with syncopal episode following swallowing and air bubble from her soda. Hgb was 7.3. ferritin at 9. she received 1 unit PRBC and Xarelto was held. Echocardiogram shows LVEF 55%, moderate diastolic dysfunction. eeg was unremarkable. head ct was negative for any acute process. stress test showed small, mildly reversible mid anterior defect. Given suspected coronary disease because of abnormal stress test, she received 1 more unit of PRBC to keep hgb between ~10. She had no telemetry events. She was not started on aspirin because of suspected GI bleed, she continued her home dose lipitor and metoprolol. She underwent EGD showing Hakan's esophagus and colonoscopy showing colonic polypoid lesion. PLAN: check cbc and potassium. follow up with dr Infante. Follow up with cardiology in 1 month. holding Xarelto in view of possible surgery for colonic lesion. - Time Spent with Patient Total time spent providing and/or coordinating discharge services: - Constitutional Vitals: Temp Pulse Resp BP Pulse Ox 97.6 F 54 16 138/75 100 02/17/17 14:54 02/17/17 14:54 02/17/17 14:54 02/17/17 14:54 02/17/17 14:54 General appearance: Present: cooperative, A&O X 3, pleasant, no acute distress, answers questions appropriately - Respiratory Respiratory exam: Present: CTAB - Cardiovascular Cardiovascular exam: Present: RRR - GI/Abdominal GI/Abdominal exam: Present: normal bowel sounds, soft. Absent: distended, tenderness - Extremities Exam Extremities exam: Absent: pedal edema - Neurological Exam Neurological exam: Present: alert, oriented X3, no focal deficits, strengths equal and symetr throughout. Absent: facial droop, speech deficit
[2017-02-17 15:53] VITALS: BP 147/71
[2017-02-17] MEDS ORDERED: *HR* Propofol 500 MG/50 ML BOTTLE IVC ONE (18:14)
[2017-02-17] MEDS ORDERED: Lidocaine -MPF 2% 5 ML VIAL INFILT ONE (18:14)
== END 2017-02-17 18:15 | disposition home or self-care (01) | DRG 812 ==
LOC: EMEROO 17:24 → 3BNU 17:24 → SUATTDRO 02-14 01:33
PROVIDERS: ADMIT Internal Medicine; ATTEND Internal Medicine
PROC: ENDOEBX (2017-02-17 12:30)